=== PATIENT | female | born 1990 | race Caucasian/White ===

== ENCOUNTER 2017-09-10 10:58 | Emergency (ER) | payer MEDICAID ==
[~2017-09-10] VITALS: Ht 157.5 cm; Wt 68.0 kg
[2017-09-10 11:09] VITALS: BP 135/82; Ht 157.5 cm; Wt 68.0 kg
== END 2017-09-10 13:30 | disposition home or self-care (01) ==
LOC: ED 10:58
DX: K08.89 Other specified disorders of teeth and supporting structures (principal)
CPT/HCPCS: Q0162